=== PATIENT | female | born 1970 | race Caucasian/White ===

== ENCOUNTER → 2019-03-30 15:05 | Outpatient (CLI) | payer SELFPAY ==
--- NOTE | 2019-03-30 15:09 | RAD_ITS ---
STUDY: X-RAY - RIGHT ANKLE REASON FOR EXAM: Female, 48 years old. Lateral swelling following a twisting injury. TECHNIQUE: 3 view(s) of the ankle. COMPARISON: None. FINDINGS: Normal visualized distal tibia and fibula. Normal medial and lateral malleoli. Normal tibiotalar articulation and ankle mortise. Normal visualized talus and calcaneus. The visualized subtalar, talonavicular, calcaneocuboid and tarsal articulations are normal. Soft tissue swelling. RAD/Ankle min 3 Views IMPRESSION: Soft tissue swelling. Electronically Signed: Ethan Martinez, at 15:31 EST , Service support ,
== END ==
LOC: HPRAD 15:07
PROVIDERS: Referring Provider Nurse Practitioner Family; Visit Provider Nurse Practitioner Family
DX: S99.911A Unspecified injury of right ankle, initial encounter (principal)
CPT/HCPCS: 73610

== ENCOUNTER 2021-05-23 14:46 | Outpatient (CLI) | payer SELFPAY ==
[2021-05-23 15:01] LABS: Absolute Lymphocyte Count 2.41 X10^3/uL (0.83-4.51); Basophil# 0.06 X10^3/uL; Basophil% 0.8 % (0-1); Eosinophil# 0.07 X10^3/uL; Eosinophils% 0.9 % (0-5); Hematocrit 42.3 % (37-47); Hemoglobin 14.3 g/dL (12.0-15.0); Lymphocyte # 2.41 X10^3/ul (0.83-4.51); Lymphocyte % 30.3 % (19-41); Mean Corp Hgb Conc 33.8 g/dL (32-36); Mean Corpuscular Volume 94.6 fL (81-99); Mean Platelet Vol. 9.2 fl (6.2-12.0); Monocyte# 0.41 X10^3/uL; Monocyte% 5.2 % (0-10); NRBC Flagged by Analyzer 0 % (0-5); Neutrophil # 4.96 X10^3/uL (2.7-7.7); Neutrophil % 62.3 % (47-70); Platelet Count 347 K/mm3 (150-450); RBC Distribution Width CV 11.7 % (11.6-14.6); RBC Distribution Width SD 41.1 fl (35.1-43.9); Red Blood Count 4.47 M/mm3 (4.2-5.4)
[2021-05-23 15:27] LABS: ALB/GLOB Ratio 0.9 RATIO (0.9-2.4); AST(SGOT) 18 U/L (15-37); Alanine Aminotransfer ALT/SGPT 32 U/L (13-56); Albumin, Serum 3.9 g/dL (3.2-5.0); Alkaline Phosphatase 91 U/L (45-117); Anion Gap 5 (5-15); BUN 21 mg/dL (7-18); BUN/Creat Ratio 25.1 RATIO (10-20); Calcium,Total 9.2 mg/dL (8.5-10.1); Chloride 107 mmol/L (98-107); Creatinine, Serum 0.84 mg/dL (0.55-1.02); EST Glomerular Filtration Rate 76 mL/min (>60); Est Glom Filt Rate - Afr Amer 92 mL/min (>60); Estradiol 14.2 pg/mL; Follicle Stimulating Hormone 98.2 mIU/mL; Globulin 4.2 g/dL (2.2-4.2); Glucose 96 mg/dL (74-106); Luteinizing Hormone 45.7 mIU/mL; Protein, Total 8.1 g/dL (6.4-8.2); Sodium Level 141 mmol/L (136-145); Thyroid Stim Hormone (TSH) 3.08 uIU/mL (0.358-3.74)
[2021-05-28 20:58] LABS: HPV APTIMA, High Risk Negative (Negative)
== END 2021-05-23 23:59 | disposition short-term general hospital (02) ==
PROVIDERS: Referring Provider Obstetrics & Gynecology; Visit Provider Obstetrics & Gynecology
DX: Z12.4 Encounter for screening for malignant neoplasm of cervix (principal); R63.5 Abnormal weight gain
CPT/HCPCS: 36415; 80053; 82670; 83001; 83002; 84443; 85025; 87624; 88175; G0145

== ENCOUNTER 2021-06-27 12:27 | Outpatient (CLI) | payer SELFPAY | END 2021-06-27 23:59 | disposition home or self-care (01) | PROVIDERS: Visit Provider Obstetrics & Gynecology | DX: Z12.31 Encounter for screening mammogram for malignant neoplasm of breast (principal) | CPT/HCPCS: 77063; 77067 ==

== ENCOUNTER 2021-07-02 14:23 | Outpatient (CLI) | payer SELFPAY ==
--- NOTE | 2021-07-02 14:27 | BI_ITS ---
MAMMOGRAPHY - BILATERAL DIAGNOSTIC REASON FOR EXAM: Female, 50 years old. Abnormal screening mammogram. PERTINENT HISTORY: Aunt with breast cancer. TECHNIQUE: Compression magnification views of both breasts were obtained. CAD: Full Field Digital Mammography with Computer Added Detection was performed. COMPARISON: Comparison is made with prior mammogram dated 06/27/2021. FINDINGS: Breast Composition: The breasts are heterogeneously dense, which may obscure small masses. Since prior study, there has been progressive increase in numbers of the microcalcifications in the retroareolar regions of both breasts more prominent on the left side. Repeat biopsy recommended. No other significant abnormalities are identified. BI/DIAG MAMM W/CAD, BILAT IMPRESSION: Interval increase in the number of microcalcifications in the retroareolar regions of both breasts as described. A repeat biopsy is recommended. ASSESSMENT CATEGORY: BIRADS Category 0: Incomplete. Need additional imaging evaluation. A letter regarding these results will be sent to the patient by the facility within 30 days. Approximately 10% of breast cancers are not detected by mammography. A normal mammogram should not delay biopsy of a clinically suspicious abnormality. Electronically Signed: Ethan Martinez MD at 15:18 EST ,
== END 2021-07-02 23:59 | disposition home or self-care (01) ==
PROVIDERS: Visit Provider Obstetrics & Gynecology
DX: R92.1 Mammographic calcification found on diagnostic imaging of breast (principal)
CPT/HCPCS: 77066

== ENCOUNTER 2021-07-11 10:53 | Outpatient (CLI) | payer SELFPAY ==
--- NOTE | 2021-07-11 | BRBX_PTH ---
PATIENT: BIMAL NAIK LOC: [facility] U#:[id number] AGE/SX: 50/F ROOM: RE07/11/[address]: Dr. Ángela Moralez MD : 1970 BED: DIS: 07/11/2021 SPEC #: [id number] RECD: 07/11/21 13:02 STATUS: RACHDI YVAN #: [id number] BRENDA: 07/11/21 00:[address]: Ángela Moralez DEPT: SURGICAL PATHOLOGY RECD BY: Yony Barillas ENTERED: 07/11/21 13:02 SP TYPE: BREAST BX OTHR DR: No Primary Care Phys Tissues: A - Right breast, NOS B - Left breast, NOS Procedures: Surgery Specimen Level IV HEADER OPERATION: Bilateral breast stereotactic biopsy PRE-OP DIAGNOSIS: Microcalcifications in the retroareolar regions of both breasts TISSUE SUBMITTED: A ? Right breast core tissue, B ? Left breast core tissue ISCHEMIC TIME: 2 minutes FIXATION TIME: 8 hours MICROSCOPIC DIAGNOSIS A. Right breast lesion, core biopsy: Nonproliferative fibrocystic change, focal involutional change. Banal microcalcifications. No evidence of malignancy. See comment. B. Left breast, core biopsy: Fibrocystic change. Adenosis. Focal intraductal hyperplasia without atypia. Banal microcalcifications. See comment. AM:vandana 07/12/2021 COMMENT A & B. Immunohistochemistry ([id number]) supports the above diagnosis. MICROSCOPIC DESCRIPTION Slides are reviewed. GROSS DESCRIPTION A - Received in fixative is one container labeled with the patient's name and designated right breast. The specimen consists of multiple irregular and elongated fragments of montes-yellow soft tissue that in aggregate measure 2.5 x 2 x 0.2 cm. The specimen is totally submitted in one cassette. B - Received in fixative is one container labeled with the patient's name and designated left breast. The specimen consists of multiple irregular and elongated fragments of montes-yellow soft tissue that in aggregate measure 2 x 1.5 x 0.2 cm. The specimen is totally submitted in one cassette. / GARY:vandana 07/11/2021 TC:3 CPT: 71025 x2
--- NOTE | 2021-07-11 | IMM_PTH ---
PATIENT: BIMAL NAIK LOC: [facility] U#:[id number] AGE/SX: 50/F ROOM: RE07/11/[address]: Dr. Ángela Moralez MD : 1970 BED: DIS: 07/11/2021 SPEC #: [id number] RECD: 07/12/21 12:19 STATUS: RACHID RETamar #: [id number] BRENDA: 07/11/21 00:[address]: Ángela Moralez DEPT: IMMUNOHISTOCHEMISTRY RECD BY: Jenniffer Deshpande ENTERED: 07/12/21 12:20 SP TYPE: IMMUNO OT DR: No Primary Care Phys Tissues: A - Right breast, NOS B - Left breast, NOS Procedures: SMA (add) CALPONIN-1 (add) Pankeratin (initial) P40 (add) PHYSICIAN & INSTITUTION [place] [id number] SPECIMEN INFORMATION: Tissue Source: A ? Right breast, B ? Left breast Clinical Info: Microcalcifications in the retroareolar regions of both breasts Specimen Number: [id number] A & B CPT code: 45560 x2, 69262 x6 METHODOLOGY: Deparaffinized sections of prefer/formalin-fixed tissue or PAP/DQ stained slides are incubated with monoclonal/polyclonal antibodies/oligonucleotide probes. Localization is made via biotin free immunoperoxidase method. Appropriate controls are performed and reacted as expected. Results on target cell population are indicated in the following table: RESULTS: ANTIBODY / CLONE RESULT Block A AE1-3 (AE1/AE3/PCK26) positive P40 (BC28) positive Actin (1A4) positive Calponin-1 (NP606M) positive Block B AE1-3 (AE1/AE3/PCK26) positive P40 (BC28) positive Actin (1A4) positive Calponin-1 (NC516G) positive These tests were developed and their performance characteristics determined by [facility]. They may not have been cleared or approved by the U.[place]. Food and Drug Administration. The FDA has determined that such clearance or approval is not necessary. The above immunohistochemical/dualISH markers are ordered and reviewed by the Pathologist. INTERPRETATION: A. Right breast, stereotactic core biopsy: Benign breast tissue. B. Left breast, stereotactic core biopsy: Benign breast tissue. AM:vandana 07/15/2021
--- NOTE | 2021-07-11 12:09 | PCM.OPRPT ---
Report of Operation Date of Procedure: 07/11/21 Pre-Operative Diagnosis: Bilateral retroareolar microcalcifications Post-Operative Diagnosis: Same Surgery/Procedure Performed:: Stereotactic bilateral breast biopsy Surgeon: Ángela Moralez Type of Anesthesia: Local Specimen's removed: 1. Right breast microcalcifications, 2. Left breast microcalcifications. Estimated Blood Loss (mL): minimal Description of Procedure: Procedure: Bilateral Stereotactic core biopsy Indications: 50 year-old female with multiple microcalcifications in the retroareolar aspects of Bilateral breast. Patient did have previous bilateral stereotactic biopsies due to these microcalcifications in 2007 which showed ductal hyperplasia without atypia along with some polarizing calcifications. Risk benefits were discussed the patient and she elected to proceed with stereotactic core biopsy with clip placement Description of procedure: Patient was brought into the mammography suite and laid prone on the stereotactic table. A timeout was completed verifying correct patient, procedure, site, specially, prior to beginning procedure. Both breasts were done similarly. The breast was prepped and draped in usual sterile fashion and using local anesthesia was obtained with 1% lidocaine with epi. Patient's breast was positioned and placed into compression. Initial film showed calcifications are in the center of the compression paddle. 15? views were then taken. The calcifications were localized. The left breast was prepped draped in usual sterile fashion. An 10-gauge mammotome was set up according to the digital coordinates. The tract of the mammotome was anesthetized with local anesthesia and an incision was made with the 11 blade scalpel at the entry site. The mammotome was advanced to the prefire state. Pre-prior films were checked and verified. The mammotome was fired. Post fire films were also checked and verified. Biopsies were taken from 9:00 to 2:00. The specimen was x-rayed and a good representation of the calcifications were within the specimen. Mammotome Petite barbell clip was placed at the 12 o'clock position. The mammotome was removed from the breast. An additional films were taken which showed some of the calcifications were removed and a clip was in place. Pressure was held for hemostasis. Once hemostasis was assured the wound was dressed with Steri-Strips and OpSite. The patient tolerated the procedure well and was discharged from the mammography suite good condition. complications: none Complications none
== END 2021-07-11 23:59 | disposition home or self-care (01) ==
LOC: BIRAD 10:55
PROVIDERS: Visit Provider Surgery
DX: N60.11 Diffuse cystic mastopathy of right breast (principal); N60.12 Diffuse cystic mastopathy of left breast; N60.22 Fibroadenosis of left breast
CPT/HCPCS: 19081; 88305; 88341; 88342; J7050

== ENCOUNTER → 2022-06-17 | Outpatient (CLI) | payer OTHER, SELFPAY ==
[2022-06-17 11:58] LABS: AST(SGOT) 18 U/L (15-37); Alanine Aminotransfer ALT/SGPT 23 U/L (13-56); Albumin, Serum 3.9 g/dL (3.2-5.0); Alkaline Phosphatase 86 U/L (45-117); Anion Gap 7 (5-15); BUN 17 mg/dL (7-18); BUN/Creat Ratio 21.1 RATIO (10-20); Calcium,Total 9.2 mg/dL (8.5-10.1); Chloride 106 mmol/L (98-107); Cholesterol 222 mg/dL (200); Creatinine, Serum 0.81 mg/dL (0.55-1.02); EST Glomerular Filtration Rate 79 mL/min (>60); Est Glom Filt Rate - Afr Amer 96 mL/min (>60); Globulin 4.1 g/dL (2.2-4.2); Glucose 102 mg/dL (74-106); High Density Lipoprotein 98 mg/dL; Potassium 4.3 mmol/L (3.5-5.1); Sodium Level 141 mmol/L (136-145); Thyroid Stim Hormone (TSH) 2.14 uIU/mL (0.358-3.74); Triglycerides 61 mg/dL; Very Low Density Lipoprotein 12 mg/dL (5-40)
== END | disposition home or self-care (01) ==
LOC: PAVLAB 11:10
PROVIDERS: Referring Provider Obstetrics & Gynecology; Visit Provider Obstetrics & Gynecology
DX: Z13.220 Encounter for screening for lipoid disorders (principal); E66.9 Obesity, unspecified; Z13.29 Encounter for screening for other suspected endocrine disorder; Z13.21 Encounter for screening for nutritional disorder
CPT/HCPCS: 36415; 80053; 80061; 82306; 84443

== ENCOUNTER 2022-08-05 14:20 | Outpatient (RCR) | payer SELFPAY | END 2022-08-24 23:59 | LOC: NS 14:20 | PROVIDERS: Referring Provider Obstetrics & Gynecology; Visit Provider Obstetrics & Gynecology | DX: Z71.3 Dietary counseling and surveillance (principal); E66.9 Obesity, unspecified; Z68.35 Body mass index [BMI] 35.0-35.9, adult | CPT/HCPCS: 97802 ==

== ENCOUNTER → 2022-08-15 | Outpatient (CLI) | payer SELFPAY ==
--- NOTE | 2022-08-15 09:11 | EKG12_ITS ---
Test Reason : MEDICATION Blood Pressure : / mmHG Vent. Rate : 070 BPM Atrial Rate : 070 BPM P-R Int : 148 ms QRS Dur : 070 ms QT Int : 380 ms P-R-T Axes : 006 -24 029 degrees QTc Int : 410 ms Normal sinus rhythm Low voltage QRS Borderline ECG Confirmed by SERGIO COLEMAN, BLAKE ([id number]), associate editor SHELIA CEE ([id number]) on 08/18/2022 10:58:55 AM Referred By: Neyda Rubio Confirmed By:BLAKE HILL MD
== END | disposition home or self-care (01) ==
PROVIDERS: Referring Provider Obstetrics & Gynecology; Visit Provider Obstetrics & Gynecology
DX: E66.8 Other obesity (principal)
CPT/HCPCS: 93005

== ENCOUNTER 2022-08-26 12:32 | Outpatient (RCR) | payer SELFPAY | END 2022-09-24 23:59 | LOC: NS 12:32 | PROVIDERS: Referring Provider Obstetrics & Gynecology; Visit Provider Obstetrics & Gynecology | DX: Z71.3 Dietary counseling and surveillance (principal); E66.9 Obesity, unspecified; Z68.35 Body mass index [BMI] 35.0-35.9, adult | CPT/HCPCS: 97803 ==